=== PATIENT | female | born 1955 | race Caucasian/White ===

== ENCOUNTER 2017-05-05 09:34 | Observation (INO) ==
[2017-05-05] MEDS ORDERED: ASPIRIN 325 MG TABLET PO STA (09:49)
[2017-05-05] MEDS ORDERED: NITROGLYCERIN 2% OINT 1 INCH/GM PACK TOP STA (09:49)
[2017-05-05] MEDS ORDERED: ONDANSETRON 4 MG/2 ML VIAL IV STA (09:49)
[2017-05-05] MEDS ORDERED: NITROGLYCERIN SL 0.4 MG TABLET SL PRN (09:49)
[2017-05-05] MEDS ORDERED: ASPIRIN CHEW 81 MG TABLET PO ONE (09:53)
[2017-05-05] MEDS ORDERED: NITROGLYCERIN SL 0.4 MG TABLET SL ONE (09:54)
[2017-05-05 09:58] LABS: Basophils # 0.1 10*3/uL (0.0-0.2); Basophils % 0.8 % (0.0-0.8); Eosinophils # 0.1 10*3/uL (0.0-0.87); Eosinophils % 0.5 % (0.00-10.9); Hematocrit 42.3 VOL% (35.7-47.0); Hemoglobin 14.2 GM/DL (12.0-16.0); Immature Granulocytes % 0.4 %; Immature Granulocytes Absolute 0.04 #; Lymphocytes # 2.2 10*3/uL (1.4-4.0); Lymphocytes % 22.1 % (21.3-54.2); Mean Corpuscular HGB Conc 33.6 GM/DL (32-36); Mean Corpuscular Hemoglobin 28 PG (27-34); Mean Corpuscular Volume 83.6 FL (87-102); Mean Platelet Volume 11.5 FL (9.6-12.0); Monocytes % 9.5 % (1.7-12.7); Neutrophils # 6.7 10*3/uL (1.4-7.4); Neutrophils % 66.7 % (38.7-73.9); Platelet Count 194 T/CUMM (130-400); Red Blood Count 5.06 MC/CUMM (3.8-5.5); Red Cell Distribution Width 15.1 % (9.3-17.3)
[2017-05-05] MEDS ORDERED: ONDANSETRON 4 MG/2 ML VIAL ONE (09:58)
[2017-05-05 10:03] LABS: Partial Thromboplastin Time 37.7 SECS (0-40)
[2017-05-05 10:08] LABS: INR 2.4; PT Patient Result 26.4 SECS
[2017-05-05] MEDS ORDERED: ASPIRIN CHEW 81 MG TABLET PO STA (10:16)
--- NOTE | 2017-05-05 10:17 | XRay Report ---
Exam: XR chest 1V portable Indication: Midline chest pain Comparison study: Prior chest radiograph dated 03/28/2013 Findings: The heart, mediastinum and bony structures are stable from prior. There is no focal consolidation, pneumothorax or pleural effusion identified. Impression: No acute cardiopulmonary process. No significant change from prior. PROCEDURE INTERPRETED AT [facility] DEPARTMENT OF RADIOLOGY Final Report Signed by: Sheng Borrego
[2017-05-05 10:24] LABS: Albumin 4.2 G/DL (3.4-5.0); Bilirubin,Total 1.3 MG/DL (0.2-1.0); Calcium 9.2 MG/DL (8.5-10.1); Osmolality,Calculated 273.7 MOS/KG (273-304); Potassium 3.9 MMOL/L (3.5-5.1); Total Protein 8.3 G/DL (6.4-8.3)
[2017-05-05] MEDS ORDERED: DOCUSATE SODIUM 100 MG CAPSULE PO PRN (10:55)
[2017-05-05] MEDS ORDERED: ZALEPLON 5 MG CAPSULE PO PRN (10:55)
[2017-05-05] MEDS ORDERED: MAGNESIUM SULF RIDER 2 GM in PREMIX 1 EACH IV PRN ×2 (10:57→15:25)
[2017-05-05] MEDS ORDERED: MAGNESIUM SULF RIDER 4 GM in PREMIX 1 EACH IV PRN (10:57)
[2017-05-05] MEDS ORDERED: CARVEDILOL 3.125 MG TABLET PO STA (10:59)
[2017-05-05] MEDS ORDERED: LORazepam 1 MG TABLET PO STA (10:59)
--- NOTE | 2017-05-05 10:59 | Emergency Department Note ---
Ludivina Rodriguez Rolonda, am scribing for, and in the presence of, Jose Angel Jameson MD 10:09. Trino Rodriguez Phillip K, MD, personally performed the services described in this documentation, ascribed by Jillian Florence in my presence, and it is both accurate and complete . Arrival - Arrival Chief Complaint: Chest Pain ED Nursing Triage Note: states that she has had a big air bubble in the center of chest and radiates to her back, denies pain down her left arm, co constant nausea started this am with dizziness, belching. reports an " umbelievable headache" Mode of Arrival: Ambulatory Limitations: No Limitations Source: Patient, Old Records Reviewed, RN Notes Reviewed Time Seen by Provider: 05/05/17 09:59 - History of Present Illness HPI Narrative: Pt is a 61 y/o female who ambulated to the ED for further evaluation of mid chest pain pressure with an onset of x6 days ago. Pt has PMHx of GERD, HTN, and AFib, has a FHx of heart disease, and SHX of current every day smoker. Pt states that her pain starts in the front of the chest and radiates to the back. She states that she has been belching, feels as if there is an air bubble in her chest, and has a STOKES which feels "like the top of her head is about to blow off" which she thinks is a result of elevated BP. At time of triage pt's BP was 212/88. She denies taking ASA today, abdomen pain, and vomiting but confirms SOB , dizziness, and nausea. She also states that her left arm "feels heavy." No other complaint/pain in ED. Onset (ago): day(s) Consistency: constant Severity: moderate Severity scale (1-10): 5 Quality: other (pressure) Allergies/Adverse Reactions: Allergies Allergy/AdvReac Type Severity Reaction Status Date / Time codeine AdvReac Severe SHORTNESS Verified 05/05/17 09:53 OF BREATH iodine AdvReac Mild RASH Verified 05/05/17 09:49 Sulfa (Sulfonamide AdvReac Mild SHORTNESS Verified 05/05/17 09:53 Antibiotics) OF BREATH Home Medications: Home Medications Medication Instructions Recorded Confirmed Type Amiodarone Tab [Cordarone Tab] 200 mg PO DAILY 05/05/17 05/05/17 History Budesonide/Formoterol 80-4.5 2 puff INH BID PRN 05/05/17 05/05/17 History [Symbicort 80-4.5] Escitalopram [Lexapro] 20 mg PO QPM 05/05/17 05/05/17 History NIFEdipine [Nifedipine ER] 30 mg PO DAILY 05/05/17 05/05/17 History Warfarin Sodium 5 mg PO DAILY 05/05/17 05/05/17 History traMADol TAB [Ultram] 50 mg PO DAILY PRN 05/05/17 05/05/17 History Review of System - Review of System 12 point system: reviewed and no additional remarkable complaints except as stated - Review of System Constitutional: Absent: chills, fever Eyes: Absent: pain, redness Head/Ears/Nose/Throat: Absent: earache, epistaxis Respiratory: Present: respiratory distress (SOB) Cardiovascular: Present: chest pain Gastrointestinal: Present: nausea. Absent: abdominal pain, vomiting, diarrhea Genitourinary female: Absent: dysuria Musculoskeletal: Absent: arm pain, back pain, leg pain, neck pain Skin: Absent: rash, change in color Neurological: Present: headache, vertigo. Absent: weakness Psychiatric: Absent: anxiety Medical,Surgical,& Family Hx - Medical History Cardio: History of: Hypertension, Cardiovascular Problems (A fib) - Surgical History Abdominal Surgeries: Surgical HX of: Cholecystectomy Reproductive Surgeries: Surgical HX of;: Hysterectomy - Social History Smoking Status: Current every day smoker Frequency of Alcohol Use: None Type of Drug Use: None Exam Vital Signs: Vital Signs Temperature 98.4 F 05/05/17 09:39 Pulse Rate 94 H 05/05/17 09:39 Respiratory Rate 20 05/05/17 09:39 Blood Pressure 212/88 05/05/17 09:39 O2 Sat by Pulse Oximetry 98 05/05/17 09:39 - General General appearance: alert, in no apparent distress - Head Head exam: Present: atraumatic, normocephalic - Eye Eye exam: Present: PERRL, EOMI - ENT ENT exam: Present: mucous membranes moist. Absent: mucous membranes dry - Neck Neck exam: Present: full ROM. Absent: tenderness - Chest Chest inspection: Present: symmetric chest wall rise. Absent: tenderness - Respiratory Respiratory exam: Present: normal lung sounds bilaterally. Absent: wheezes - Cardiovascular Cardiovascular exam: Present: normal rhythm, tachycardia - Abdominal Exam Abdominal exam: Present: soft, normal bowel sounds. Absent: tenderness - Extremities Exam Extremities exam: Present: full ROM. Absent: tenderness - Back Exam Back exam: Present: full ROM. Absent: tenderness - Neurological Exam Neurological exam: Present: alert, oriented X3, CN II-XII intact - Psychiatric Psychiatric exam: Present: normal affect, normal mood - Skin Skin exam: Present: warm, dry, intact, normal color. Absent: rash Course Course Narrative: Patient discussed with Dr. Guadarrama. Results - Labs CBC & BMP: 05/05/17 09:40 05/05/17 09:40 Lab Results: I have reviewed the patients labs Labs: Laboratory Tests 05/05/17 05/05/17 09:40 09:40 WBC 10.0 RBC 5.06 Hgb 14.2 Hct 42.3 MCV 83.6 L Plt Count 194 [place] # (Auto) 1.0 H INR 2.4 PT Patient/Control Mix 26.4 Circ Anticoag PTT 37.7 Laboratory Tests 05/05/17 09:40 INR 2.4 PT Patient/Control Mix 26.4 Circ Anticoag PTT 37.7 Laboratory Tests 05/05/17 09:40 Sodium 138 Potassium 3.9 Chloride 106 Carbon Dioxide 25 BUN 12 Creatinine 1.20 H GFR Calculation 52 Total Bilirubin 1.30 H AST 45 H Alkaline Phosphatase 139 H Globulin 4.1 H Albumin/Globulin Ratio 1.0 L - EKG EKG results: interpreted by ERMD, sinus rhythm (Inferior and lateral ischemia) - Diagnostic Findings Procedure: Chest x-ray: report reviewed by me (No acute cardiopulmonary process. No significant change from prior.) Disposition Clinical Impression: Chest pain, Possible unstable angina, Hypertension Case discussed with: patient Disposition: Still a Patient Condition: Guarded Additional Instructions: Admit to Dr. Guadarrama
--- NOTE | 2017-05-05 11:00 | Cardiology History & Physical ---
Addendum entered and electronically signed by Nilam Ruvalcaba NP 05/05/17 15: 27: Patient has an allergy to IVP dye, specifically rash. She is being premedicated for heart catheterization. Original Note: <Nilam Ruvalcaba - Last Filed: 05/05/17 15:11> Assessment and Plan - Time spent with patient Time spent with patient: Greater than 30 minutes Time spent discussing smoking cessation with patient: 3 to 10 minutes (1) Tobacco abuse Status: Chronic Assessment and plan: SEE PLAN OF CARE LISTED BELOW Current Visit: Yes (2) Atrial fibrillation Status: Chronic Assessment and plan: SEE PLAN OF CARE LISTED BELOW Current Visit: Yes (3) High risk medication use Status: Chronic Assessment and plan: SEE PLAN OF CARE LISTED BELOW Current Visit: Yes (4) Chest pain Status: Acute Assessment and plan: SEE PLAN OF CARE LISTED BELOW Current Visit: Yes (5) Hypertension Status: Chronic Assessment and plan: SEE PLAN OF CARE LISTED BELOW Current Visit: Yes History of Present Illness Chief complaint: Chest pain History of present illness: Ms. Dunne, 61WF, has risk factors significant for: hypertension, tobaccoism, family history of coronary artery disease. History of atrial fibrillation for which she takes Sotalol for approximately 10 years. Takes Warfarin for stroke prevention. 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 Presented to the ED of [facility] this morning after experiencing intermittent chest pressure for approximately 1 week. Lasting various amounts of times usually 3-5 minutes. Described as " full like a bubble" beginning anteriorly in the center of her chest radiating posteriorly into her back. She can identify no aggravating factors nor any alleviating factors. She is currently chest pain-free. Rates the discomfort as a 5 on a scale of 1-10. Exercise does not re-create the discomfort. She has noted left arm heaviness on occasion often associated with the chest discomfort. Not associated with shortness of breath, diaphoresis. She has been told in the past by her primary care provider, she needed heart catheterization. Patient has a history of atrial fibrillation. She feels as if her arrhythmia is controlled on Sotalol as she has not had any palpitations in several years. INR 2.4. This morning, upon arrival, blood pressure was uncontrolled at 212/ 88. It has been elevated for approximately 1 week. Cardiac biomarkers negative , EKG unremarkable. Dr. Guadarrama has seen patient and recommended cardiac catheterization tomorrow. Will hold Coumadin, INR in the morning. Fasting lipid profile in the morning. Continue to cycle cardiac biomarkers, EKG and monitor telemetry. Echocardiogram, PPI, amylase, lipase. She is received Aspirin, beta sue. Because patient's INR is therapeutic, will not require require Lovenox. ASSESSMENT/PLAN: 1. CHEST PAIN - NPO after midnight for [facility] tomorrow. Should patient's cardiac biomarkers trend positive, will take this afternoon otherwise, scheduled for in the morning. Echo. PPI. Will add Simethicone. 2. HYPERTENSION -usually well controlled however over the past week has been suboptimally controlled. Coreg 6.25 mg has been initiated as well 3. UNKNOWN LIPID STATUS - FLP in the AM 4. TOBACCOISM - counseling prior to discharge 5. HISTORY OF ATRIAL FIBRILLATION - holding Coumadin tonight. Currently in NSR. Home Medications Medication Instructions Recorded Confirmed Type Budesonide/Formoterol 80-4.5 2 puff INH BID PRN 05/05/17 05/05/17 History [Symbicort 80-4.5] Escitalopram [Lexapro] 20 mg PO BEDTIME 05/05/17 05/05/17 History NIFEdipine [Nifedipine ER] 30 mg PO DAILY 05/05/17 05/05/17 History Warfarin Sodium 5 mg PO DAILY 05/05/17 05/05/17 History traMADol TAB [Ultram] 50 mg PO Q6H PRN 05/05/17 05/05/17 History Allergies Allergy/AdvReac Type Severity Reaction Status Date / Time Iodinated Contrast Media - Allergy Unknown RASH Verified 05/05/17 14:06 Oral and codeine AdvReac Severe Agitated Verified 05/05/17 14:06 Sulfa (Sulfonamide AdvReac Mild SHORTNESS Verified 05/05/17 09:53 Antibiotics) OF BREATH Review of systems: REVIEW OF SYSTEMS: - Constitutional Constitutional: Present: Fatigue. Absent: syncope, anorexia, night sweats - EENT Eyes: Absent: blurry vision, loss of vision, diplopia Ears: Absent: decreased hearing, ear pain, ear discharge - Cardiovascular Cardiovascular: Present: chest fullness at various times. No palpitations in several years, no real edema. - Respiratory Respiratory: Denies ORTIZ, cough. Absent: wheezing, hemoptysis, change in phlegm color - Gastrointestinal Gastrointestinal: Absent: Abdominal pain, hematemesis, hematochezia, melena, change in bowel habits, nausea - Genitourinary Genitourinary: Absent: difficulty urinating, dysuria, urinary hesitancy, flank pain - Musculoskeletal Musculoskeletal: Absent: joint swelling, muscle cramps, muscle weakness - Neurological Neurological: Present: normal gait without frequent falls. Absent: dizziness, hemiparesis - Psychiatric Psychiatric: Absent: anxiety, depression, difficulty concentrating - Endocrine Endocrine: Absent: cold intolerance, heat intolerance, polyuria, polyphagia, polydipsia - Hematologic/Lymphatic Hematologic/Lymphatic: Present: easy bruising. Absent: easy bleeding -Integumentary Integumentary: Absent: lesions, rashes, skin breakdown Medical,Surgical,& Family Hx - Medical History Cardio: History of: Cardiac Dysrhythmia (Atrial fibrillation), Hypertension, Cardiovascular Problems (A fib) No history of: CAD, NC - Surgical History Abdominal Surgeries: Surgical HX of: Cholecystectomy Reproductive Surgeries: Surgical HX of;: Hysterectomy - Social History Smoking Status: Current every day smoker Have you smoked in the last 12 months: Yes Time spent discussing smoking cessation with patient: 3 to 10 minutes Frequency of Alcohol Use: None Type of Drug Use: None Functional capacity: independent ambulation Cardiology Physical Exam - Constitutional Vitals: Vital Signs Temp Pulse Resp BP Pulse Ox 98.4 F 94 H 20 212/88 98 05/05/17 09:39 05/05/17 09:39 05/05/17 09:39 05/05/17 09:39 05/05/17 09:39 Intake and Output 05/04/17 05/05/17 05/05/17 23:59 07:59 15:59 Other: Weight 75.296 kg Patient Weight 05/05/17 23:59 Weight 75.296 kg Exam: General: [Appears well with no apparent distress.] [Pleasant and cooperative. ] [Appears comfortable.] HEENT: [PERRL, normocephalic, atraumatic. Mucous membranes moist. No jaundice noted. Conjunctiva moist and clear, sclerae anicteric] Neck: No JVD/HJR, no thyromegaly or lymphadenopathy noted. No carotid bruit appreciated Cardiac: [Regular rate and rhythm.] [No murmur rub or gallop.] Lungs: [Clear to auscultation without accessory muscle use to assist the respiratory pattern.] Not requiring oxygen Abdomen: Soft, bowel sounds normoactive. Nontender and nondistended. No abdominal bruit or thrill noted. No masses noted. Musculoskeletal: No fluid collection. Decreased range of motion is noted. Extremities: No clubbing, cyanosis noted. [ No edema noted.] Upper extremity pulses 2+. Lower extremity pulses 2+. Capillary refill less than 3 seconds. Skin: No unusual lesions or rashes. No skin breakdown appreciated. Neuro: Awake, alert and oriented 3. Moves all extremities well without hemiparesis or paralysis. No essential tremor is appreciated. Result/EKG - Labs CBC & BMP: 05/05/17 09:40 05/05/17 09:40 Lab Results: I have reviewed the past 24 hour labs Labs: Laboratory Results - last 24 hr 05/05/17 05/05/17 05/05/17 09:40 09:40 09:40 WBC RBC Hgb Hct MCV MCH MCHC RDW Plt Count MPV Neut % (Auto) Lymph % (Auto) Josephine % (Auto) Eos % (Auto) Baso % (Auto) Neut # (Auto) Lymph # (Auto) Josephine # (Auto) Eos # (Auto) Baso # (Auto) Immature Gran % Nucleated RBC % Immature Gran # Nucleated RBCs # INR 2.4 PT Patient/Control Mix 26.4 Circ Anticoag PTT 37.7 Sodium 138 Potassium 3.9 Chloride 106 Carbon Dioxide 25 Anion Gap 10.9 BUN 12 Creatinine 1.20 H GFR Calculation 52 BUN/Creatinine Ratio 10.00 Glucose 77 Calculated Osmolality 273.7 Calcium 9.2 Total Bilirubin 1.30 H AST 45 H ALT 53 Alkaline Phosphatase 139 H Troponin I B-Natriuretic Peptide 85 Total Protein 8.3 Albumin 4.2 Globulin 4.1 H Albumin/Globulin Ratio 1.0 L 05/05/17 05/05/17 09:40 09:40 WBC 10.0 RBC 5.06 Hgb 14.2 Hct 42.3 MCV 83.6 L MCH 28 MCHC 33.6 RDW 15.1 Plt Count 194 MPV 11.5 Neut % (Auto) 66.7 Lymph % (Auto) 22.1 Josephine % (Auto) 9.5 Eos % (Auto) 0.5 Baso % (Auto) 0.8 Neut # (Auto) 6.7 Lymph # (Auto) 2.2 Josephine # (Auto) 1.0 H Eos # (Auto) 0.1 Baso # (Auto) 0.1 Immature Gran % 0.4 Nucleated RBC % 0.0 Immature Gran # 0.04 Nucleated RBCs # 0.00 INR PT Patient/Control Mix Circ Anticoag PTT Sodium Potassium Chloride Carbon Dioxide Anion Gap BUN Creatinine GFR Calculation BUN/Creatinine Ratio Glucose Calculated Osmolality Calcium Total Bilirubin AST ALT Alkaline Phosphatase Troponin I 0.026 B-Natriuretic Peptide Total Protein Albumin Globulin Albumin/Globulin Ratio - Diagnostic Findings Procedure: Chest x-ray: report reviewed by me - EKG EKG results: interpreted by me EKG shows: sinus rhythm Quality Measures - Stroke Onset of Symptoms Date: 05/05/17 <Ruel Guadarrama - Last Filed: 05/05/17 15:57> History of Present Illness History of present illness: Ms. Dunne is a 61 year old female who presents with chest discomfort which I think is more suggestive of esophageal pain that it is actually angina. She does have extensive risk factors for premature heart disease and my plan is going to be to have her undergo cardiac catheterization in the morning. She is on Coumadin so we will hold that today and I think it would be reasonable to catheter tomorrow. I will have her placed on appropriate antianginals antithrombotics. I have discussed in detail the particulars of this case and I have examined the patient and reviewed the patient's chart both current and old. I was directly involved in the patient's evaluation and management and I completely agree with [Nilam Ruvalcaba NP] regarding this patient's evaluation and treatment plan. Cardiology Physical Exam - Constitutional Vitals: Vital Signs Temp Pulse Resp BP Pulse Ox 97.2 F L 61 18 147/73 93 L 05/05/17 13:21 05/05/17 13:21 05/05/17 13:21 05/05/17 13:21 05/05/17 13:21 Intake and Output 05/04/17 05/05/17 05/05/17 23:59 07:59 15:59 Other: Weight 75.296 kg Patient Weight 05/05/17 23:59 Weight 75.296 kg Result/EKG - Labs CBC & BMP: 05/05/17 09:40 05/05/17 09:40 Labs: Laboratory Results - last 24 hr 05/05/17 05/05/17 05/05/17 09:40 09:40 09:40 WBC RBC Hgb Hct MCV MCH MCHC RDW Plt Count MPV Neut % (Auto) Lymph % (Auto) Josephine % (Auto) Eos % (Auto) Baso % (Auto) Neut # (Auto) Lymph # (Auto) Josephine # (Auto) Eos # (Auto) Baso # (Auto) Immature Gran % Nucleated RBC % Immature Gran # Nucleated RBCs # INR 2.4 PT Patient/Control Mix 26.4 Circ Anticoag PTT 37.7 Sodium 138 Potassium 3.9 Chloride 106 Carbon Dioxide 25 Anion Gap 10.9 BUN 12 Creatinine 1.20 H GFR Calculation 52 BUN/Creatinine Ratio 10.00 Glucose 77 Calculated Osmolality 273.7 Calcium 9.2 Total Bilirubin 1.30 H AST 45 H ALT 53 Alkaline Phosphatase 139 H Total Creatine Kinase CK-MB (CK-2) Troponin I B-Natriuretic Peptide 85 Total Protein 8.3 Albumin 4.2 Globulin 4.1 H Albumin/Globulin Ratio 1.0 L Amylase Lipase TSH 3rd Generation 05/05/17 05/05/17 05/05/17 09:40 09:40 09:40 WBC 10.0 RBC 5.06 Hgb 14.2 Hct 42.3 MCV 83.6 L MCH 28 MCHC 33.6 RDW 15.1 Plt Count 194 MPV 11.5 Neut % (Auto) 66.7 Lymph % (Auto) 22.1 Josephine % (Auto) 9.5 Eos % (Auto) 0.5 Baso % (Auto) 0.8 Neut # (Auto) 6.7 Lymph # (Auto) 2.2 Josephine # (Auto) 1.0 H Eos # (Auto) 0.1 Baso # (Auto) 0.1 Immature Gran % 0.4 Nucleated RBC % 0.0 Immature Gran # 0.04 Nucleated RBCs # 0.00 INR PT Patient/Control Mix Circ Anticoag PTT Sodium Potassium Chloride Carbon Dioxide Anion Gap BUN Creatinine GFR Calculation BUN/Creatinine Ratio Glucose Calculated Osmolality Calcium Total Bilirubin AST ALT Alkaline Phosphatase Total Creatine Kinase CK-MB (CK-2) Troponin I 0.026 B-Natriuretic Peptide Total Protein Albumin Globulin Albumin/Globulin Ratio Amylase Lipase 134.0 TSH 3rd Generation 05/05/17 05/05/17 05/05/17 09:40 09:40 11:43 WBC RBC Hgb Hct MCV MCH MCHC RDW Plt Count MPV Neut % (Auto) Lymph % (Auto) Josephine % (Auto) Eos % (Auto) Baso % (Auto) Neut # (Auto) Lymph # (Auto) Josephine # (Auto) Eos # (Auto) Baso # (Auto) Immature Gran % Nucleated RBC % Immature Gran # Nucleated RBCs # INR PT Patient/Control Mix Circ Anticoag PTT Sodium Potassium Chloride Carbon Dioxide Anion Gap BUN Creatinine GFR Calculation BUN/Creatinine Ratio Glucose Calculated Osmolality Calcium Total Bilirubin AST ALT Alkaline Phosphatase Total Creatine Kinase 61 CK-MB (CK-2) < 1.0 Troponin I B-Natriuretic Peptide Total Protein Albumin Globulin Albumin/Globulin Ratio Amylase 68 Lipase 135.0 TSH 3rd Generation 2.640 05/05/17 13:56 WBC RBC Hgb Hct MCV MCH MCHC RDW Plt Count MPV Neut % (Auto) Lymph % (Auto) Josephine % (Auto) Eos % (Auto) Baso % (Auto) Neut # (Auto) Lymph # (Auto) Josephine # (Auto) Eos # (Auto) Baso # (Auto) Immature Gran % Nucleated RBC % Immature Gran # Nucleated RBCs # INR PT Patient/Control Mix Circ Anticoag PTT Sodium Potassium Chloride Carbon Dioxide Anion Gap BUN Creatinine GFR Calculation BUN/Creatinine Ratio Glucose Calculated Osmolality Calcium Total Bilirubin AST ALT Alkaline Phosphatase Total Creatine Kinase 51 CK-MB (CK-2) < 1.0 Troponin I 0.037 B-Natriuretic Peptide Total Protein Albumin Globulin Albumin/Globulin Ratio Amylase Lipase TSH 3rd Generation
[2017-05-05] MEDS ORDERED: METOPROLOL TARTRATE 50 MG TABLET PO STA (12:05)
[2017-05-05] MEDS ORDERED: METOPROLOL TARTRATE 50 MG TABLET ONE (12:34)
[2017-05-05] MEDS ORDERED: CARVEDILOL 3.125 MG TABLET ONE (12:34)
[2017-05-05] MEDS ORDERED: NITROGLYCERIN 2% OINT 1 INCH/GM PACK TOP ONE (12:39)
[2017-05-05] MEDS ORDERED: LORazepam 1 MG TABLET ONE (12:44)
--- NOTE | 2017-05-05 13:43 | EKG Report ---
Stationary ECG Study [facility] Test Date: 05/05/2017 1:43:11 PM Pat Name: GHISLAINE OBANDO Department: Room: 280 Gender: F Band Shover: SIMONE : 1955 Requested by: Jose Angel Avina Order Number: [id number] Reading MD: CRICKET IRBY Intervals [place] Rate: 59 P: 78 [place]: 157 QRS: 63 QRSD: 89 T: 64 QT: 461 QTc: 461 Interpretive Statements SINUS RHYTHM Electronically Signed On 05-05-17 17:23:36 CDT by CRICKET IRBY [email or web address]
[2017-05-05] MEDS ORDERED: PNEUMOCOCCAL VACCINE (23 VALENT) 0.5 ML VIAL IM ONE (13:58)
[2017-05-05 15:03] LABS: Troponin I Only 0.037 NG/ML (0.00-0.045)
[2017-05-05] MEDS ORDERED: BUDESONIDE/FORMOTEROL 80-4.5 INHALER 6.9 GM INH PRN (15:18)
[2017-05-05] MEDS: SODIUM CHLORIDE 0.45% 1,000 ML IV SCH (15:18)
[2017-05-05] MEDS: diphenhydrAMINE CAP 50 MG CAPSULE PO SCH ×2 (15:19→22:20)
[2017-05-05] MEDS: FAMOTIDINE 20 MG TABLET PO SCH ×2 (15:19→22:20)
[2017-05-05] MEDS: ACETAMINOPHEN 325 MG TABLET PO PRN ×2 (15:19→22:20)
[2017-05-05] MEDS: methylPREDNISolone SOD SUC 40 MG/1 ML VIAL IV SCH ×2 (15:20→17:25)
[2017-05-05] MEDS: PANTOPRAZOLE 40 MG TABLET PO SCH (15:20)
[2017-05-05] MEDS ORDERED: POTASSIUM CHLORIDE RIDER 10 MEQ in PREMIX 1 EACH IV PRN (15:25)
--- NOTE | 2017-05-05 16:15 | EKG Report ---
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
--- NOTE | 2017-05-05 17:02 | Event Note ---
Patient with chest pain of anginal quality. His risk factors for coronary disease. She is for cardiac catheterization possible percutaneous coronary mentioned. I discussed procedure in detail with her reviewing indications as well as how the procedure be carried out the risk. She does have a questionable IVP dye allergy and thus we will carry out prophylaxis for this. I discussed cardiac catheterization and percutaneous coronary intervention with the patient. I reviewed with her the indications for the procedure and the basis of how the procedure would be carried out. I also reviewed with her the risk of the procedure which include but not necessarily limited to access site bleeding, bruising, pain, swelling or vascular injury that may require emergency vascular surgery, blood transfusion, or thrombin injection. Also discussed the possibility of stroke, myocardial infarction, arrhythmia which may require electrocardioversion, and the possibility of dye reaction that would require medical therapy. Also discussed the possibility of coronary artery injury, ruptured, closure or perforation that may require emergency bypass surgery. We also discussed the possibility of from a major complication. She voices understanding and agrees to proceed.
[2017-05-05] MEDS ORDERED: HYDROmorphone 2 MG/1 ML VIAL IV PRN (17:11)
[2017-05-05 20:59] LABS: Troponin I Only < 0.015 NG/ML (0.00-0.045)
[2017-05-05] MEDS ORDERED: ESCITALOPRAM 10 MG TABLET PO SCH (21:00)
[2017-05-05] MEDS: METOPROLOL TARTRATE 25 MG TABLET PO SCH (22:20)
[2017-05-05] MEDS: traMADol 50 MG TABLET PO PRN (22:27)
[2017-05-05] MEDS: ONDANSETRON 4 MG/2 ML VIAL IV PRN (23:42)
[2017-05-06] MEDS: SODIUM CHLORIDE 0.45% 1,000 ML IV SCH ×4 (00:01→12:16)
[2017-05-06] MEDS: methylPREDNISolone SOD SUC 40 MG/1 ML VIAL IV SCH ×4 (00:36→14:31)
[2017-05-06] MEDS ORDERED: cloNIDine 0.1 MG TABLET PO PRN (04:47)
[2017-05-06 05:30] LABS: Basophils % 0.1 % (0.0-0.8); Hematocrit 42.3 VOL% (35.7-47.0); Hemoglobin 14.1 GM/DL (12.0-16.0); Immature Granulocytes % 0.4 %; Immature Granulocytes Absolute 0.03 #; Lymphocytes # 0.9 10*3/uL (1.4-4.0); Mean Corpuscular HGB Conc 33.3 GM/DL (32-36); Mean Corpuscular Hemoglobin 28 PG (27-34); Mean Corpuscular Volume 83.6 FL (87-102); Mean Platelet Volume 11.7 FL (9.6-12.0); Monocytes # 0.1 10*3/uL (0.11-0.8); Monocytes % 1.1 % (1.7-12.7); Neutrophils # 6.6 10*3/uL (1.4-7.4); Neutrophils % 86.4 % (38.7-73.9); Platelet Count 156 T/CUMM (130-400); Red Blood Count 5.06 MC/CUMM (3.8-5.5); Red Cell Distribution Width 14.8 % (9.3-17.3); White Blood Count 7.6 T/CUMM (4-12)
[2017-05-06 05:42] LABS: INR 2.4
[2017-05-06 05:54] LABS: Albumin 3.7 G/DL (3.4-5.0); Bilirubin,Total 1.1 MG/DL (0.2-1.0); Calcium 8.6 MG/DL (8.5-10.1); Osmolality,Calculated 274.7 MOS/KG (273-304); Potassium 4.3 MMOL/L (3.5-5.1); Risk Ratio 2.84; Total Protein 7.5 G/DL (6.4-8.3); VLDL CHOLESTEROL 13.8 MG/DL
[2017-05-06] MEDS ORDERED: DIAZEPAM 5 MG TABLET PO ONE (06:00)
[2017-05-06] MEDS ORDERED: diphenhydrAMINE CAP 25 MG CAPSULE PO ONE (06:00)
[2017-05-06 06:02] LABS: PT Patient Result 26.5 SECS
[2017-05-06] MEDS: ONDANSETRON 4 MG/2 ML VIAL IV PRN (06:47)
--- NOTE | 2017-05-06 06:59 | Event Note ---
Patient stated this morning she has some shortness of breath going to the bathroom. No chest pain. She is for cardiac catheterization possible percutaneous coronary mentioned later today. Again I discussed this procedure reviewing the indications have been carried out the risk with her. This was also discussed yesterday in great detail. Her questions were answered. We will proceed with procedure today.
--- NOTE | 2017-05-06 06:59 | History and Physical Update ---
Sedation H&P Update - History and Physical H&P was reviewed, the patient examined and there: are no changes in the patients condition since last H&P was completed. - Dictation Physical: refer to H&P completed by admitting physician - Physical Exam Heart: regular rate and rhythm Lung: clear to auscultation History and Physical Changes: None - Sedation Plan for Sedation: moderate Patient Consent: Procedure disscussed with patient and patinet has consented., Risks and benefits were discussed with patient,including infection,, bleeding, injury to surrounding structures, seizure, temporary nerve, Patient understands and accepts potential risks/benefits and agrees to, proceed. ASA Class: III Airway Assessment: Class III: Soft palate, base of uvula visible
[2017-05-06 07:13] LABS: Apearance,Urine CLEAR (Clear); Bilirubin,Urine Negative (Negative); Blood, Urine Moderate mg/dL (Negative); Glucose,Urine (UA) 150 mg/dL (Negative); Hyaline Casts,Urine 1 /LPF (0-3); Ketones,Urine Negative (Negative); Mucus,Urine Occasional /LPF (Occasional); Nitrite,Urine Negative (Negative); Protein,Urine 100 MG/DL; RBC,Urine 13 /HPF (0-4); Squamous Epithelial Cell,Urine Occasional /HPF (0-10); Urine Color Yellow (Yellow); Urine Specific Gravity 1.012 (1.001-1.035); Urine Urobilinogen < 2.0 EU/DL (0.2-1.0); WBC,Urine 1 /HPF (0-6)
--- NOTE | 2017-05-06 08:12 | EKG Report ---
Stationary ECG Study [facility] Test Date: 05/05/2017 9:39:18 AM Pat Name: GHISLAINE OBANDO Department: Room: 280 Gender: F Caddy: : 1955 Requested by: Jose Angel Avina Order Number: [id number] MD: LEVY HERRERA Intervals [place] Rate: 97 P: 80 [place]: 132 QRS: 66 QRSD: 90 T: 65 QT: 356 QTc: 410 Interpretive Statements SINUS RHYTHM Electronically Signed On 05-06-17 09:25:45 CDT by LEVY HERRERA [email or web address]
--- NOTE | 2017-05-06 09:11 | ECHO Report ---
Divya Dunne Exam Date: 05/05/2017 11:54 Referring Physician: Technologist: Aspen Esquivel RDCS Age: 61 Ht (in): 66 Wt (lb): 166 Gender: F Exam Location: [facility] Echo Indications: Chest pain, unspecified, Shortness of breath, Essential (primary) hypertension, Dizziness and giddiness, Nausea, Nicotine dependence, cigarettes, uncomplicated, Headache BP: 212 / 88 HR: 81 Rhythm: Sinus Technical Quality: Very technically difficult study IMPRESSIONS Normal left ventricular cavity size. Mild left ventricular hypertrophy. Left ventricular ejection fraction is estimated at 55 %. The right ventricle is normal in size and function. The right atrium is mildly enlarged. The left atrium is mildly enlarged. Morphologically normal mitral valve. Trace mitral valve regurgitation. Morphologically normal aortic valve without significant sclerosis or stenosis. There is no aortic regurgitation. Morphologically normal tricuspid valve. Trace tricuspid valve regurgitation. Morphologically normal pulmonic valve without significant stenosis. There is no pulmonic regurgitation. Normal pericardium without effusion. Normal ascending aorta dimension. MEASUREMENTS (Male / Female) Normal Values 2D ECHO LV Diastolic Diameter PLAX 4.4 cm 4.2 - 5.9 / 3.9 - 5.3 cm LV Systolic Diameter PLAX 3.5 cm LV Fractional Shortening PLAX 21.6 % IVS Diastolic Thickness 1.1 cm 0.6 - 1.0 / 0.6 - 0.9 cm LVPW Diastolic Thickness 1.1 cm 0.6 - 1.0 / 0.6 - 0.9 cm RV Internal Dim ED PLAX 3.4 cm Aortic Root Diameter 2.7 cm LA Systolic Diameter LX 2.8 cm 3.0 - 4.0 / 2.7 - 3.8 cm FINDINGS Left Ventricle Normal left ventricular cavity size. Mild left ventricular hypertrophy. Left ventricular ejection fraction is estimated at 55 %. Right Ventricle The right ventricle is normal in size and function. Right Atrium The right atrium is mildly enlarged. Left Atrium The left atrium is mildly enlarged. Mitral Valve Morphologically normal mitral valve. Trace mitral valve regurgitation. Aortic Valve Morphologically normal aortic valve without significant sclerosis or stenosis. There is no aortic regurgitation. Tricuspid Valve Morphologically normal tricuspid valve. Trace tricuspid valve regurgitation. Pulmonic Valve Morphologically normal pulmonic valve without significant stenosis. There is no pulmonic regurgitation. Pericardium Normal pericardium without effusion. Aorta Normal ascending aorta dimension. Ruel Guadarrama MD (Electronically Signed) Final Date: 06 May 2017 09:10
[2017-05-06] MEDS: FAMOTIDINE 20 MG TABLET PO SCH (09:21)
[2017-05-06] MEDS: PANTOPRAZOLE 40 MG TABLET PO SCH (09:21)
[2017-05-06] MEDS: METOPROLOL TARTRATE 25 MG TABLET PO SCH (09:21)
[2017-05-06] MEDS: traMADol 50 MG TABLET PO PRN (09:21)
[2017-05-06] MEDS: diphenhydrAMINE CAP 50 MG CAPSULE PO SCH (11:00)
[2017-05-06] MEDS ORDERED: NITROGLYCERIN DRIP 50 MG/250 ML BOTTLE IV ONE (12:16)
[2017-05-06] MEDS ORDERED: LIDOCAINE 1% 20 ML VIAL ONE (12:16)
[2017-05-06] MEDS ORDERED: VERAPAMIL 5 MG/2 ML VIAL ONE (12:16)
[2017-05-06] MEDS ORDERED: MIDAZOLAM 2 MG/2 ML VIAL ONE (12:38)
[2017-05-06] MEDS ORDERED: fentaNYL 100 MCG/2 ML VIAL ONE (12:38)
[2017-05-06] MEDS ORDERED: ENOXAPARIN 60 MG/0.6 ML SYRINGE ONE (12:44)
--- NOTE | 2017-05-06 13:07 | Operative Note ---
Date of procedure: 05/06/17 Procedure Preformed: Left heart catheterization with LV gram using right radial approach. Surgeon / Physician: Tal Cota Fun[employer] Car Driver: Jose F Sarmiento Post-op diagnosis: same Findings: The patient without any significant coronary artery disease or obstruction. Left ventricular ejection fraction is normal. Specimens: none sent Estimated blood loss: minimal Condition: stable Anesthesia: local, conscious sedation Disposition: floor
--- NOTE | 2017-05-06 14:13 | Cardiac Catheterization ---
Date of Procedure:: 05/06/17 Pre-op Diagnosis: Anginal quality chest pain with risk factors for coronary disease. Post-op diagnosis: same Procedure: LEFT HEART CATHETERIZATION History: 61-year-old female with risk factors for coronary disease with chest pain of anginal quality. Pre-Op diagnosis: Chest pain of anginal quality for evaluation coronary disease. Postoperative diagnosis: Procedures: 1. Left heart catheterization. 2. Left ventricular angiogram. 3. Selective left and right coronary angiograms. 4. Left internal mammary artery angiogram. Equipment: Terumo 6 [place] radial glide arterial sheath, Terumo 6 [place] radial TIG 4.0 diagnostic. Medium TR band. Medications: Preoperative Benadryl and Valium given by mouth. Lidocaine 1% local anesthesia mls administered by myself. Intraprocedure patient received Versed mgs IVP, fentanyl mcgs IVP, Verapamil 5 mg/NTG 200 mcg in 5 ml NS; Dilaudid mgs IVP. Complications: None immediate. Contrast: Omnipaque 75 milliliters. Description of procedure: After informed consent the patient was given preoperative medications and brought to the catheterization laboratory where their right groin and right anterior wrist and forearm was prepped and draped in usual fashion. IV sedation was then obtained after which local anesthesia with lidocaine was administered over the right radial artery. Using the double wall needle the radial artery was cannulated. Microguidewire was advanced through the cannula into the radial artery. We exchanged for the radial artery sheath that was advanced over the microguidewire. Guidewire was removed. The diagnostic 6 [place]i TIG 4.0 catheter was advanced and used to cross the aortic valve and left ventricular pressures were measured with LVEDP. Left ventricular angiogram was then obtained in the right oblique view. Pressures were again measured in the left ventricle with pullback pressures were then measured in the aortic root. This same catheter was then used to cannulate the left and then right coronary arteries of which angiograms were obtained of each of these vessels in multiple projections. The angiograms were then reviewed. The diagnostic catheter was then removed over the guidewire. The TR band was then placed in the usual fashion and hemostasis obtained. Hemodynamic data: LV 171/-4 , EDP 11 ; post angio LV 170/-4 , EDP 10 ; AO root 162/65 , mean 103 . Left ventricular angiogram: Left ventricle is normal size systolic function ejection fraction 55+%. There is no segmental wall motion normality's. No significant mitral valve regurgitation noted. Aortic valve appears to be a tricuspid structure. Thoracic aorta was unremarkable. Left main coronary artery angiogram: Left main coronary is short bifurcating the LAD and circumflex arteries. It is without stenosis. Left anterior descending artery angiogram: The LAD is a medium caliber vessel proximally and tapers are small vessel especially as it approaches and extends around the posterior apex. First and second diagonal branches are relatively small vessels. The LAD proper is widely patent as is its branches without stenosis or other disease. Circumflex artery angiogram: Circumflex arteries a medium caliber vessel giving rise to very small first obtuse marginal branch and a medium caliber second obtuse marginal branch is long cover larger myocardium. Third obtuse marginal branch is small medium caliber and widely patent. Distally circumflex terminates in the form of a fourth OM/posterior ventricular branch. There were some luminal irregularities in the circumflex artery but otherwise widely patent. Right coronary artery angiogram: The RCA is a small/medium caliber vessel that is dominant giving rise to a small medium caliber PDA and somewhat small posterior lateral branches. It also gives rise distally to the AV node artery. There is some luminal irregularities but no stenosis. Impression: 1. Left ventricle is normal size systolic function ejection fraction 55+%. 2. LVEDP is normal at 11 mmHg. 3. Aortic valve appears to be grossly a tricuspid structure without gradient. 4. Mitral valve is without significant regurgitation. 5. Right coronary artery at worst with luminal irregularities otherwise widely patent. 6. Left main coronary is short and widely patent. 7. The LAD and branches are patent without stenosis or disease. 8. Circumflex artery has it worse luminal irregularities otherwise widely patent. 9. Successful hemostasis of the right radial artery. Discussion: Patient be monitored post heart catheterization. She needs risk factor modification. Blood pressures need aggressive therapy. She needs to stop smoking. Implants: None. Anesthesia: local, moderate conscious sedation Surgeon / Physician: Tal Cota Early Morning: other (Lionel Sarmiento RN) Estimated blood loss: minimal Specimens: none sent Condition: stable Disposition: floor - Medications / Follow-up
--- NOTE | 2017-05-06 15:25 | Event Note ---
Patient doing well post catheterization. Her right radial artery catheterization site looks good and stable. She still groggy post procedure for her sedation. Her blood pressures have remained elevated some. We have increased her nifedipine. She has room for titration of her medications. This is typically followed by Dr. Rai Marion. I again reviewed with her and her family that her coronary arteries are stable and are not the cause of her symptoms. Her LV function was normal. Hopefully she can go home later today or tomorrow.
--- NOTE | 2017-05-06 16:28 | Discharge Summary ---
Hospital Course - Hospital Course Hospital Course: [facility] DIRECTOR: DR. MCGRATH PCP: DR. MARION Ms. Dunne, 61WF, has risk factors significant for: hypertension, tobaccoism, family history of coronary artery disease. History of atrial fibrillation for which she takes Sotalol for approximately 10 years. Takes Warfarin for stroke prevention. 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 Presented to the ED of [facility] May 05, 2017 after experiencing intermittent chest pressure for approximately 1 week. Her blood pressure was extremely high upon arrival and significant head-ache ensued. CIEs negative, EKG unremarkable. Given her multiple comorbidities, patient underwent elective cardiac catheterization May 06, 2017, performed by Dr. Cota, with the following impression noted: Impression: 1. Left ventricle is normal size systolic function ejection fraction 55+%. 2. LVEDP is normal at 11 mmHg. 3. Aortic valve appears to be grossly a tricuspid structure without gradient. 4. Mitral valve is without significant regurgitation. 5. Right coronary artery at worst with luminal irregularities otherwise widely patent. 6. Left main coronary is short and widely patent. 7. The LAD and branches are patent without stenosis or disease. 8. Circumflex artery has it worse luminal irregularities otherwise widely patent. 9. Successful hemostasis of the right radial artery. Echocardiogram revealed the following: EF 55%, no significant valvular abnormality. Patient has an IVP dye allergy (rash), therefore she was treated prophylactically to prevent reaction. LDL 127. Tolerated the procedure well without complication was returned to our telemetry unit in stable condition. Patient was counseled for greater than 5 minutes regarding the need for tobacco cessation. Patient is anxious for release home. Having felt she met maximal medical therapy, patient is being released in stable condition. Patient will resume all preadmission medications including: Warfarin 5 mg orally daily Tramadol 50 mg orally every 6 hours as needed Lexapro 20 mg orally each evening Symbicort 804 0.52 puffs inhalation twice daily as needed Nifedipine ER being increased from 30 mg daily to 60 mg daily. Metoprolol tartrate 25 mg orally twice daily (new) Discontinuing Clonidine altogether Protonix 40mg orally daily (new) Patient is not being discharged home on aspirin as she already takes Warfarin Patient already has an appointment with Dr. Mcgrath first week of May. She will keep this appointment. Patient will keep her existing appointment with Dr. Marion as well. Dr. Marion monitors INR and there is already a plan in place for monitoring. Patient is being given a referral back to Dr. Yuan for evaluation of noncardiac chest pain. Would like for her to be seen within the next few weeks. - Time spent with patient Time with patient DS: Less than 30 minutes Time spent discussing smoking cessation with patient: 3 to 10 minutes Diagnosis - Discharge Diagnosis (1) Tobacco abuse Status: Chronic (2) Atrial fibrillation Status: Chronic (3) High risk medication use Status: Chronic (4) Chest pain Status: Resolved (5) Hypertension Status: Chronic Specialty Discharge - Follow Up or Referrals Follow up with: Ramy Mcgrath MD [Physician] - (Keep appointment in May) Rai Marion DO [Primary Care Provider] - (Keep current appointment with Dr. Marion. Continue INR schedule for monitoring) Yassine Yuan MD [Physician] - (RE: non-cardiac chest pain. Appointment 2-3 weeks) Discharge Plan - Discharge Data Disposition: Disch To Home/Self Care Condition at Discharge: Stable Discharge Diet: advance to your usual diet Activity: other (Post cath expectations) Hygiene: other (Post cath expectations) Weight Bearing at Discharge: other (Post cath expectations) Driving: other (Post cath expectations) Contact your physician if you experience:: fever over 101, Difficulty voiding, Redness or swelling, Nausea/Vomiting, Shortness of breath, Bleeding, pain uncontrolled by pain medications - Discharge Medications New NIFEdipine XL TAB [Procardia Xl] 60 mg PO DAILY #30 tablet Metoprolol Tartrate Tab [Lopressor Tab] 25 mg PO BID #60 tablet Pantoprazole Tab [Protonix Tab] 40 mg PO DAILY #30 tablet Continue Budesonide/Formoterol 80-4.5 [Symbicort 80-4.5] 2 puff INH BID PRN PRN Reason: Shortness Of Breath Escitalopram [Lexapro] 20 mg PO BEDTIME Warfarin Sodium 5 mg PO DAILY traMADol TAB [Ultram] 50 mg PO Q6H PRN PRN Reason: Headache Discontinued NIFEdipine [Nifedipine ER] 30 mg PO DAILY - Follow Up or Referral - Forms/Instructions Instructions: Coronary Artery Disease (GEN), Left Heart Catheterization (DC), Heart Healthy Diet (GEN), Cigarette Smoking and Your Health (GEN), How to Stop Smoking, Critical Care Nurse Practitioner (GEN) Additional Discharge Instructions: Please give patient written prescription to return to work Monday, May 08, 2017. Exam - Constitutional Vitals: Period Temp Pulse Resp BP Sys/Munson Pulse Ox Last 24 Hr 96.5 F-98.8 F 59-82 16-20 151-207/69-90 90-96 Exam: General: [Appears well with no apparent distress.] [Pleasant and cooperative. ] [Appears comfortable.] HEENT: [PERRL, normocephalic, atraumatic. Mucous membranes moist. No jaundice noted. Conjunctiva moist and clear, sclerae anicteric] Neck: No JVD/HJR, no thyromegaly or lymphadenopathy noted. No carotid bruit appreciated Cardiac: [Regular rate and rhythm.] [No murmur rub or gallop.] Lungs: [Clear to auscultation without accessory muscle use to assist the respiratory pattern.] Not requiring oxygen Abdomen: Soft, bowel sounds normoactive. Nontender and nondistended. No abdominal bruit or thrill noted. No masses noted. Musculoskeletal: No fluid collection. Decreased range of motion is noted. Extremities: Right radial approach reveals no hematoma. No clubbing, cyanosis noted. [ No edema noted.] Upper extremity pulses 2+. Lower extremity pulses 2+ . Capillary refill less than 3 seconds. Skin: No unusual lesions or rashes. No skin breakdown appreciated. Neuro: Awake, alert and oriented 3. Moves all extremities well without hemiparesis or paralysis. No essential tremor is appreciated. Discharge Results Procedures and tests throughout hospitalization: Pending Orders 05/06/17 12:27 CL heart Routine 05/07/17 04:00 Comp Blood Count Auto Diff IN AM Comprehensive Metabolic Panel IN AM Labs on day of discharge: Labs from last 24 hours 05/06/17 05/06/17 05/06/17 06:58 04:33 04:33 WBC RBC Hgb Hct MCV MCH MCHC RDW Plt Count MPV Neut % (Auto) Lymph % (Auto) [place] % (Auto) Eos % (Auto) Baso % (Auto) Neut # (Auto) Lymph # (Auto) [place] # (Auto) Eos # (Auto) Baso # (Auto) Immature Gran % Nucleated RBC % Immature Gran # Nucleated RBCs # INR 2.4 PT Patient/Control Mix 26.5 Sodium 138 Potassium 4.3 Chloride 105 Carbon Dioxide 26 Anion Gap 11.3 BUN 11 Creatinine 0.70 GFR Calculation 101 BUN/Creatinine Ratio 15.00 Glucose 119 H Calculated Osmolality 274.7 Calcium 8.6 Total Bilirubin 1.10 H AST 37 ALT 50 Alkaline Phosphatase 129 H Total Creatine Kinase CK-MB (CK-2) Troponin I Total Protein 7.5 Albumin 3.7 Globulin 3.8 H Albumin/Globulin Ratio 0.9 L Triglycerides 69 Cholesterol 236 H LDL Cholesterol 127.0 VLDL Cholesterol 13.8 HDL Cholesterol 83 H Heart Disease Risk Ratio 2.84 Urine Color Yellow Urine Appearance Clear Urine pH 6.0 Ur Specific [place] 1.012 Urine Protein 100 Urine Glucose (UA) 150 Urine Ketones Negative Urine Blood Moderate Urine Nitrate Negative Urine Bilirubin Negative Urine Urobilinogen < 2.0 H Urine Leukocytes Negative Urine RBC 13 Urine WBC 1 Ur Squamous Epith Cells Occasional Hyaline Casts 1 Urine Mucus Occasional Ur Culture Indicated? Not indicated 05/06/17 05/05/17 04:33 20:00 WBC 7.6 RBC 5.06 Hgb 14.1 Hct 42.3 MCV 83.6 L MCH 28 MCHC 33.3 RDW 14.8 Plt Count 156 MPV 11.7 Neut % (Auto) 86.4 H Lymph % (Auto) 12.0 L [place] % (Auto) 1.1 L Eos % (Auto) 0.0 Baso % (Auto) 0.1 Neut # (Auto) 6.6 Lymph # (Auto) 0.9 L [place] # (Auto) 0.1 L Eos # (Auto) 0.0 Baso # (Auto) 0.0 Immature Gran % 0.4 Nucleated RBC % 0.0 Immature Gran # 0.03 Nucleated RBCs # 0.00 INR PT Patient/Control Mix Sodium Potassium Chloride Carbon Dioxide Anion Gap BUN Creatinine GFR Calculation BUN/Creatinine Ratio Glucose Calculated Osmolality Calcium Total Bilirubin AST ALT Alkaline Phosphatase Total Creatine Kinase 60 CK-MB (CK-2) < 1.0 Troponin I < 0.015 Total Protein Albumin Globulin Albumin/Globulin Ratio Triglycerides Cholesterol LDL Cholesterol VLDL Cholesterol HDL Cholesterol Heart Disease Risk Ratio Urine Color Urine Appearance Urine pH Ur Specific [place] Urine Protein Urine Glucose (UA) Urine Ketones Urine Blood Urine Nitrate Urine Bilirubin Urine Urobilinogen Urine Leukocytes Urine RBC Urine WBC Ur Squamous Epith Cells Hyaline Casts Urine Mucus Ur Culture Indicated? 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
[2017-05-06 18:26] VITALS: BP 171/91
== END 2017-05-06 18:48 | disposition home or self-care (01) ==
LOC: N.ED 09:34 → N.EDINP 09:34 → N.TELEN 13:27
PROVIDERS: ADMIT Internal Medicine Interventional Cardiology; ATTEND Internal Medicine Interventional Cardiology
PROC: CLCCHCL (ICD-10-PCS; 2017-05-06 13:15)

== ENCOUNTER 2022-10-28 12:02 | Inpatient (IN) ==
[2022-10-28] MEDS ORDERED: PANTOPRAZOLE 40 MG VIAL IV STA (12:33)
[2022-10-28] MEDS ORDERED: ONDANSETRON 4 MG/2 ML VIAL IV STA (12:33)
[2022-10-28] MEDS ORDERED: ACETAMINOPHEN 325 MG TABLET PO PRN (12:34)
[2022-10-28 12:39] LABS: Basophils % 0.1 % (0.0-0.8); Hematocrit 26.8 VOL% (35.7-47.0); Immature Granulocytes Absolute 0.24 #; Lymphocytes % 16.6 % (21.3-54.2); Mean Corpuscular HGB Conc 29.9 GM/DL (32-36); Mean Corpuscular Volume 79.5 FL (87-102); Mean Platelet Volume 11.2 FL (9.6-12.0); Monocytes # 1.9 10*3/uL (0.11-0.8); Monocytes % 7.8 % (1.7-12.7); NRBC # 0.08 10*3/uL; Neutrophils % 74.5 % (38.7-73.9); Platelet Count 252 T/CUMM (130-400); Red Blood Count 3.37 MC/CUMM (3.8-5.5); Red Cell Distribution Width 16.9 % (9.3-17.3); White Blood Count 24.3 T/CUMM (4-12)
[2022-10-28] MEDS ORDERED: SODIUM CHLORIDE 0.9% 1,000 ML IV PRN ×2 (12:40→21:08)
[2022-10-28 12:49] LABS: INR 1.3; PT Patient Result 14.4 SECS (10.1-12.1); Partial Thromboplastin Time 27.1 SECS (23.7-32.9)
[2022-10-28 13:01] LABS: Albumin 3.2 G/DL (3.4-5.0); Bilirubin,Total 1.2 MG/DL (0.20-1.00); Calcium 8.7 MG/DL (8.5-10.1); Osmolality,Calculated 281.8 MOS/KG (273-304); Potassium 3.5 MMOL/L (3.5-5.1); Total Protein 6.3 G/DL (6.4-8.2)
[2022-10-28 13:50] LABS: Lymphocytes 18 % (20-55); Nucleated Red Blood Cells 1 /100 WBC (0-5); Total Cells Counted 100
[2022-10-28 13:51] LABS: Hypochromia Slight; Ovalocytes Slight; Polychromasia Few
[2022-10-28] MEDS: SODIUM CHLORIDE 0.9% 1,000 ML IV SCH ×2 (14:17→23:06)
[2022-10-28] MEDS ORDERED: hydrALAZINE 20 MG/1 ML VIAL IV PRN (16:12)
[2022-10-28] MEDS ORDERED: hydrALAZINE 20 MG/1 ML VIAL ONE (16:15)
[2022-10-28] MEDS ORDERED: DILTIAZEM 50 MG/10 ML VIAL IV ONE ×2 (16:40→16:46)
[2022-10-28] MEDS: DILTIAZEM INJ 100 MG in SODIUM CHLORIDE 0.9% 100 ML IV SCH (16:49)
[2022-10-28] MEDS ORDERED: DILTIAZEM 25 MG/5 ML VIAL IV STA (17:25)
[2022-10-28] MEDS ORDERED: DILTIAZEM 50 MG/10 ML VIAL IV STA (17:43)
[2022-10-28] MEDS ORDERED: DIGOXIN 0.5 MG/2 ML AMP IV ONE (18:14)
[2022-10-28] MEDS: LEVALBUTEROL 0.63 MG/3 ML NEB RESP TX PRN (20:35)
[2022-10-28 20:41] LABS: Basophils % 0.1 % (0.0-0.8); Eosinophils % 0.1 % (0.00-10.9); Hematocrit 24.8 VOL% (35.7-47.0); Hemoglobin 7.4 GM/DL (12.0-16.0); Immature Granulocytes Absolute 0.24 #; Lymphocytes # 4.6 10*3/uL (1.4-4.0); Lymphocytes % 19.5 % (21.3-54.2); Mean Corpuscular HGB Conc 29.8 GM/DL (32-36); Mean Corpuscular Volume 78.2 FL (87-102); Mean Platelet Volume 11.6 FL (9.6-12.0); Monocytes # 2.3 10*3/uL (0.11-0.8); Monocytes % 9.9 % (1.7-12.7); NRBC # 0.11 10*3/uL; Neutrophils % 69.4 % (38.7-73.9); Platelet Count 294 T/CUMM (130-400); Red Blood Count 3.17 MC/CUMM (3.8-5.5); Red Cell Distribution Width 17.2 % (9.3-17.3); White Blood Count 23.5 T/CUMM (4-12)
[2022-10-28 21:15] LABS: Lymphocytes 15 % (20-55); Microcytosis 1+; Ovalocytes Few; Platelet Estimate Increased; Polychromasia Few
[2022-10-28 21:16] LABS: Hypochromia Slight; Total Cells Counted 100
[2022-10-29] MEDS: SODIUM CHLORIDE 0.9% 1,000 ML IV SCH ×2 (04:45→17:01)
[2022-10-29] MEDS: LEVALBUTEROL 0.63 MG/3 ML NEB RESP TX PRN (05:00)
[2022-10-29 05:02] LABS: Basophils % 0.1 % (0.0-0.8); Eosinophils % 0.2 % (0.00-10.9); Hematocrit 25.9 VOL% (35.7-47.0); Hemoglobin 8.1 GM/DL (12.0-16.0); Immature Granulocytes % 0.6 %; Immature Granulocytes Absolute 0.08 #; Lymphocytes # 2.7 10*3/uL (1.4-4.0); Lymphocytes % 21.6 % (21.3-54.2); Mean Corpuscular HGB Conc 31.3 GM/DL (32-36); Mean Corpuscular Volume 79.4 FL (87-102); Monocytes # 1.2 10*3/uL (0.11-0.8); Monocytes % 9.5 % (1.7-12.7); NRBC # 0.02 10*3/uL; Platelet Count 121 T/CUMM (130-400); Red Blood Count 3.26 MC/CUMM (3.8-5.5); Red Cell Distribution Width 16.1 % (9.3-17.3); White Blood Count 12.5 T/CUMM (4-12)
[2022-10-29] MEDS: ONDANSETRON 4 MG/2 ML VIAL IV PRN (08:10)
[2022-10-29] MEDS ORDERED: FUROSEMIDE 20 MG TABLET PO PRN (08:21)
[2022-10-29] MEDS ORDERED: ALBUTEROL/IPRATROPIUM 3 ML NEB RESP TX PRN (08:21)
[2022-10-29] MEDS ORDERED: LACTULOSE 20 GM/30 ML UDCUP PO PRN (08:21)
[2022-10-29] MEDS ORDERED: ALBUTEROL 2.5 MG/3 ML NEB RESP TX PRN (08:29)
[2022-10-29] MEDS: ARFORMOTEROL 15 MCG/2 ML NEB RESP TX SCH ×2 (09:15→19:24)
[2022-10-29] MEDS: CHOLECALCIFEROL 1,000 UNIT TABLET PO SCH ×2 (09:19→22:38)
[2022-10-29] MEDS: ASCORBIC ACID 500 MG TABLET PO SCH (09:19)
[2022-10-29] MEDS: PANTOPRAZOLE 40 MG VIAL IV SCH (09:20)
[2022-10-29] MEDS: cloNIDine 0.1 MG TABLET PO SCH (09:20)
[2022-10-29] MEDS: MULTIVITAMIN (CENTRUM) TABLET PO SCH ×2 (09:20→22:38)
[2022-10-29] MEDS: DRONEDARONE 400 MG TABLET PO SCH (17:01)
[2022-10-29] MEDS: PROPRANOLOL 10 MG TABLET PO SCH ×2 (17:01→22:38)
[2022-10-29 17:33] LABS: Hematocrit 28.8 VOL% (35.7-47.0)
[2022-10-29] MEDS: DILTIAZEM INJ 100 MG in SODIUM CHLORIDE 0.9% 100 ML IV SCH (18:01)
[2022-10-30] MEDS: SODIUM CHLORIDE 0.9% 1,000 ML IV SCH ×3 (03:09→13:01)
[2022-10-30] MEDS: ONDANSETRON 4 MG/2 ML VIAL IV PRN (05:30)
[2022-10-30] MEDS ORDERED: LIDOCAINE 2% 5 ML VIAL ONE (07:32)
[2022-10-30] MEDS ORDERED: propofoL 200 MG/20 ML VIAL IV ONE (07:32)
[2022-10-30] MEDS ORDERED: ALBUTEROL INHALER 18 GM INH ONE (07:42)
[2022-10-30] MEDS ORDERED: ONDANSETRON 4 MG/2 ML VIAL IV ONE (08:36)
[2022-10-30] MEDS: HYDROmorphone 1 MG/1 ML SYRINGE IV PRN (09:12)
[2022-10-30 09:45] LABS: Basophils % 0.1 % (0.0-0.8); Eosinophils # 0.3 10*3/uL (0.0-0.87); Eosinophils % 2.1 % (0.00-10.9); Hematocrit 30.6 VOL% (35.7-47.0); Hemoglobin 9.6 GM/DL (12.0-16.0); Immature Granulocytes % 0.6 %; Lymphocytes # 2.8 10*3/uL (1.4-4.0); Lymphocytes % 18.2 % (21.3-54.2); Mean Corpuscular HGB Conc 31.4 GM/DL (32-36); Mean Corpuscular Volume 78.7 FL (87-102); Monocytes # 1.5 10*3/uL (0.11-0.8); Monocytes % 9.7 % (1.7-12.7); Neutrophils % 69.3 % (38.7-73.9); Platelet Count 177 T/CUMM (130-400); Red Blood Count 3.89 MC/CUMM (3.8-5.5); Red Cell Distribution Width 16.5 % (9.3-17.3); White Blood Count 15.5 T/CUMM (4-12)
[2022-10-30] MEDS: ARFORMOTEROL 15 MCG/2 ML NEB RESP TX SCH ×3 (12:00→19:03)
[2022-10-30] MEDS: cloNIDine 0.1 MG TABLET PO SCH ×2 (12:04→12:40)
[2022-10-30] MEDS: DRONEDARONE 400 MG TABLET PO SCH ×3 (12:04→16:52)
[2022-10-30] MEDS: ASCORBIC ACID 500 MG TABLET PO SCH (12:05)
[2022-10-30] MEDS: CHOLECALCIFEROL 1,000 UNIT TABLET PO SCH ×2 (12:05→20:31)
[2022-10-30] MEDS: MULTIVITAMIN (CENTRUM) TABLET PO SCH ×2 (12:05→20:31)
[2022-10-30] MEDS: PROPRANOLOL 10 MG TABLET PO SCH ×4 (12:05→20:30)
[2022-10-30] MEDS: PANTOPRAZOLE 40 MG VIAL IV SCH (13:36)
[2022-10-30] MEDS: DILTIAZEM INJ 100 MG in SODIUM CHLORIDE 0.9% 100 ML IV SCH (16:36)
[2022-10-31] MEDS: SODIUM CHLORIDE 0.9% 1,000 ML IV SCH (00:12)
[2022-10-31] MEDS ORDERED: FUROSEMIDE 40 MG/4 ML VIAL IV ONE (05:45)
[2022-10-31 06:11] LABS: Basophils % 0.1 % (0.0-0.8); Eosinophils # 0.2 10*3/uL (0.0-0.87); Hematocrit 26.5 VOL% (35.7-47.0); Hemoglobin 8.1 GM/DL (12.0-16.0); Immature Granulocytes % 0.5 %; Immature Granulocytes Absolute 0.06 #; Lymphocytes # 1.8 10*3/uL (1.4-4.0); Lymphocytes % 16.7 % (21.3-54.2); Mean Corpuscular HGB Conc 30.6 GM/DL (32-36); Mean Corpuscular Volume 79.3 FL (87-102); Mean Platelet Volume 10.4 FL (9.6-12.0); Neutrophils % 71.7 % (38.7-73.9); Platelet Count 125 T/CUMM (130-400); Red Blood Count 3.34 MC/CUMM (3.8-5.5); Red Cell Distribution Width 16.5 % (9.3-17.3)
[2022-10-31 06:42] LABS: Platelet Estimate Adequate
[2022-10-31 06:43] LABS: Anisocytosis 1+
[2022-10-31] MEDS: ARFORMOTEROL 15 MCG/2 ML NEB RESP TX SCH ×2 (07:54→19:27)
[2022-10-31] MEDS: PANTOPRAZOLE 40 MG VIAL IV SCH (09:55)
[2022-10-31] MEDS: DRONEDARONE 400 MG TABLET PO SCH ×2 (11:05→16:11)
[2022-10-31] MEDS: PROPRANOLOL 10 MG TABLET PO SCH ×3 (11:05→20:15)
[2022-10-31] MEDS: ASCORBIC ACID 500 MG TABLET PO SCH (11:06)
[2022-10-31] MEDS: CHOLECALCIFEROL 1,000 UNIT TABLET PO SCH ×2 (11:06→20:15)
[2022-10-31] MEDS: MULTIVITAMIN (CENTRUM) TABLET PO SCH ×2 (11:06→20:14)
[2022-10-31] MEDS: cloNIDine 0.1 MG TABLET PO SCH (11:07)
[2022-10-31] MEDS: HYDROmorphone 1 MG/1 ML SYRINGE IV PRN ×2 (11:46→20:16)
[2022-10-31] MEDS: SPIRONOLACTONE 100 MG TABLET PO SCH (12:16)
[2022-10-31] MEDS: DILTIAZEM INJ 100 MG in SODIUM CHLORIDE 0.9% 100 ML IV SCH (16:50)
[2022-10-31] MEDS: LACTULOSE 20 GM/30 ML UDCUP PO SCH (20:15)
[2022-11-01 06:06] LABS: Basophils % 0.1 % (0.0-0.8); Eosinophils # 0.1 10*3/uL (0.0-0.87); Eosinophils % 1.4 % (0.00-10.9); Hematocrit 25.6 VOL% (35.7-47.0); Immature Granulocytes % 0.5 %; Immature Granulocytes Absolute 0.05 #; Lymphocytes # 1.6 10*3/uL (1.4-4.0); Lymphocytes % 16.4 % (21.3-54.2); Mean Corpuscular HGB Conc 30.9 GM/DL (32-36); Mean Corpuscular Volume 80.3 FL (87-102); Mean Platelet Volume 11.5 FL (9.6-12.0); Monocytes # 1.1 10*3/uL (0.11-0.8); Monocytes % 11.1 % (1.7-12.7); Neutrophils % 70.5 % (38.7-73.9); Red Blood Count 3.19 MC/CUMM (3.8-5.5); Red Cell Distribution Width 16.5 % (9.3-17.3)
[2022-11-01 06:07] LABS: Hemoglobin 7.9 GM/DL (12.0-16.0); Platelet Count 102 T/CUMM (130-400)
[2022-11-01 06:20] LABS: Albumin 2.3 G/DL (3.4-5.0); Bilirubin,Total 2.1 MG/DL (0.20-1.00); Calcium 7.7 MG/DL (8.5-10.1); Osmolality,Calculated 278.4 MOS/KG (273-304); Potassium 3.1 MMOL/L (3.5-5.1); Total Protein 4.9 G/DL (6.4-8.2)
[2022-11-01] MEDS: ARFORMOTEROL 15 MCG/2 ML NEB RESP TX SCH ×2 (08:10→19:28)
[2022-11-01] MEDS: SPIRONOLACTONE 100 MG TABLET PO SCH (09:26)
[2022-11-01] MEDS: DRONEDARONE 400 MG TABLET PO SCH ×2 (09:27→16:20)
[2022-11-01] MEDS: FUROSEMIDE 20 MG TABLET PO SCH (09:27)
[2022-11-01] MEDS: PROPRANOLOL 10 MG TABLET PO SCH ×3 (09:31→22:36)
[2022-11-01] MEDS: LACTULOSE 20 GM/30 ML UDCUP PO SCH ×2 (09:31→20:24)
[2022-11-01] MEDS: PANTOPRAZOLE 40 MG VIAL IV SCH (09:56)
[2022-11-01] MEDS: HYDROmorphone 1 MG/1 ML SYRINGE IV PRN ×2 (10:02→20:51)
[2022-11-01] MEDS: MULTIVITAMIN (CENTRUM) TABLET PO SCH ×2 (11:08→22:36)
[2022-11-01] MEDS: ASCORBIC ACID 500 MG TABLET PO SCH (11:08)
[2022-11-01] MEDS: CHOLECALCIFEROL 1,000 UNIT TABLET PO SCH ×2 (11:08→22:37)
[2022-11-01] MEDS: cloNIDine 0.1 MG TABLET PO SCH (11:08)
[2022-11-01] MEDS ORDERED: SODIUM CHLORIDE 0.9% 1,000 ML IV PRN ×2 (11:58→11:59)
[2022-11-01] MEDS: POTASSIUM BICARB EFFERVESCENT 20 MEQ TAB.EFF PO SCH ×2 (14:38→20:24)
[2022-11-01] MEDS: DILTIAZEM INJ 100 MG in SODIUM CHLORIDE 0.9% 100 ML IV SCH (17:06)
[2022-11-02 01:12] LABS: Basophils % 0.1 % (0.0-0.8); Eosinophils # 0.2 10*3/uL (0.0-0.87); Eosinophils % 1.5 % (0.00-10.9); Hematocrit 27.5 VOL% (35.7-47.0); Hemoglobin 8.8 GM/DL (12.0-16.0); Immature Granulocytes % 0.4 %; Immature Granulocytes Absolute 0.04 #; Lymphocytes # 2.1 10*3/uL (1.4-4.0); Mean Corpuscular Volume 78.3 FL (87-102); Mean Platelet Volume 11.8 FL (9.6-12.0); Monocytes # 1.3 10*3/uL (0.11-0.8); Monocytes % 12.3 % (1.7-12.7); Neutrophils % 65.7 % (38.7-73.9); Platelet Count 100 T/CUMM (130-400); Red Blood Count 3.51 MC/CUMM (3.8-5.5); Red Cell Distribution Width 17.2 % (9.3-17.3); White Blood Count 10.7 T/CUMM (4-12)
[2022-11-02 01:20] LABS: INR 1.1; PT Patient Result 11.7 SECS (10.1-12.1)
[2022-11-02 01:30] LABS: Albumin 2.5 G/DL (3.4-5.0); Bilirubin,Direct 0.51 MG/DL (0.0-0.20); Bilirubin,Total 2.5 MG/DL (0.20-1.00); Calcium 7.9 MG/DL (8.5-10.1); Osmolality,Calculated 276.5 MOS/KG (273-304); Total Protein 5.3 G/DL (6.4-8.2)
[2022-11-02] MEDS: ARFORMOTEROL 15 MCG/2 ML NEB RESP TX SCH ×2 (07:27→19:01)
[2022-11-02] MEDS: LACTULOSE 20 GM/30 ML UDCUP PO SCH ×2 (09:47→21:22)
[2022-11-02] MEDS: SPIRONOLACTONE 100 MG TABLET PO SCH (09:47)
[2022-11-02] MEDS: FUROSEMIDE 20 MG TABLET PO SCH (09:47)
[2022-11-02] MEDS: PROPRANOLOL 10 MG TABLET PO SCH ×3 (09:47→21:22)
[2022-11-02] MEDS: DRONEDARONE 400 MG TABLET PO SCH ×2 (09:47→17:48)
[2022-11-02] MEDS: HYDROmorphone 1 MG/1 ML SYRINGE IV PRN ×2 (09:49→18:33)
[2022-11-02] MEDS: PANTOPRAZOLE 40 MG VIAL IV SCH (09:49)
[2022-11-02] MEDS: CHOLECALCIFEROL 1,000 UNIT TABLET PO SCH ×2 (10:42→21:27)
[2022-11-02] MEDS: ASCORBIC ACID 500 MG TABLET PO SCH (10:42)
[2022-11-02] MEDS: POTASSIUM BICARB EFFERVESCENT 20 MEQ TAB.EFF PO SCH ×2 (10:42→21:22)
[2022-11-02] MEDS: MULTIVITAMIN (CENTRUM) TABLET PO SCH ×2 (10:42→21:26)
[2022-11-02] MEDS: cloNIDine 0.1 MG TABLET PO SCH (10:42)
[2022-11-02] MEDS: DILTIAZEM INJ 100 MG in SODIUM CHLORIDE 0.9% 100 ML IV SCH (15:46)
[2022-11-03] MEDS: HYDROmorphone 1 MG/1 ML SYRINGE IV PRN ×3 (03:53→17:38)
[2022-11-03 06:03] LABS: Basophils % 0.1 % (0.0-0.8); Eosinophils # 0.2 10*3/uL (0.0-0.87); Eosinophils % 1.7 % (0.00-10.9); Hematocrit 32.1 VOL% (35.7-47.0); Hemoglobin 9.8 GM/DL (12.0-16.0); Immature Granulocytes % 0.6 %; Immature Granulocytes Absolute 0.06 #; Lymphocytes # 1.5 10*3/uL (1.4-4.0); Lymphocytes % 13.5 % (21.3-54.2); Mean Corpuscular HGB Conc 30.5 GM/DL (32-36); Mean Corpuscular Volume 80.5 FL (87-102); Mean Platelet Volume 10.2 FL (9.6-12.0); Monocytes # 1.2 10*3/uL (0.11-0.8); Monocytes % 10.8 % (1.7-12.7); Neutrophils % 73.3 % (38.7-73.9); Platelet Count 117 T/CUMM (130-400); Red Blood Count 3.99 MC/CUMM (3.8-5.5); Red Cell Distribution Width 17.1 % (9.3-17.3); White Blood Count 10.9 T/CUMM (4-12)
[2022-11-03 06:23] LABS: Albumin 2.6 G/DL (3.4-5.0); Bilirubin,Direct 0.43 MG/DL (0.0-0.20); Bilirubin,Indirect 1.7 MG/DL (0.0-1.0); Bilirubin,Total 2.1 MG/DL (0.20-1.00); Calcium 8.5 MG/DL (8.5-10.1); Osmolality,Calculated 273.7 MOS/KG (273-304); Potassium 3.4 MMOL/L (3.5-5.1); Total Protein 5.8 G/DL (6.4-8.2)
[2022-11-03] MEDS: ARFORMOTEROL 15 MCG/2 ML NEB RESP TX SCH ×2 (06:51→20:14)
[2022-11-03] MEDS: FUROSEMIDE 20 MG TABLET PO SCH (11:07)
[2022-11-03] MEDS: PROPRANOLOL 10 MG TABLET PO SCH ×3 (11:08→20:43)
[2022-11-03] MEDS: LACTULOSE 20 GM/30 ML UDCUP PO SCH ×2 (11:08→20:42)
[2022-11-03] MEDS: SPIRONOLACTONE 100 MG TABLET PO SCH (11:08)
[2022-11-03] MEDS: PANTOPRAZOLE 40 MG VIAL IV SCH (11:09)
[2022-11-03] MEDS: POTASSIUM BICARB EFFERVESCENT 20 MEQ TAB.EFF PO SCH ×2 (11:09→20:44)
[2022-11-03] MEDS: DRONEDARONE 400 MG TABLET PO SCH ×2 (11:13→17:27)
[2022-11-03] MEDS: ASCORBIC ACID 500 MG TABLET PO SCH (12:15)
[2022-11-03] MEDS: CHOLECALCIFEROL 1,000 UNIT TABLET PO SCH ×2 (12:15→20:43)
[2022-11-03] MEDS: cloNIDine 0.1 MG TABLET PO SCH (12:15)
[2022-11-03] MEDS: MULTIVITAMIN (CENTRUM) TABLET PO SCH ×2 (12:15→20:42)
[2022-11-03] MEDS: DILTIAZEM INJ 100 MG in SODIUM CHLORIDE 0.9% 100 ML IV SCH (17:39)
[2022-11-04 03:49] LABS: Basophils % 0.4 % (0.0-0.8); Eosinophils # 0.2 10*3/uL (0.0-0.87); Eosinophils % 1.5 % (0.00-10.9); Hemoglobin 8.8 GM/DL (12.0-16.0); Immature Granulocytes % 0.3 %; Immature Granulocytes Absolute 0.03 #; Lymphocytes % 18.4 % (21.3-54.2); Mean Corpuscular HGB Conc 30.3 GM/DL (32-36); Mean Platelet Volume 11.3 FL (9.6-12.0); Monocytes # 1.2 10*3/uL (0.11-0.8); Monocytes % 11.2 % (1.7-12.7); Neutrophils % 68.2 % (38.7-73.9); Platelet Count 114 T/CUMM (130-400); Red Blood Count 3.58 MC/CUMM (3.8-5.5); Red Cell Distribution Width 16.9 % (9.3-17.3); White Blood Count 10.8 T/CUMM (4-12)
[2022-11-04 04:12] LABS: Albumin 2.3 G/DL (3.4-5.0); Bilirubin,Total 2.4 MG/DL (0.20-1.00); Calcium 7.9 MG/DL (8.5-10.1); Potassium 3.8 MMOL/L (3.5-5.1); Total Protein 5.4 G/DL (6.4-8.2)
[2022-11-04] MEDS: ONDANSETRON 4 MG/2 ML VIAL IV PRN ×2 (04:15→10:38)
[2022-11-04] MEDS: ARFORMOTEROL 15 MCG/2 ML NEB RESP TX SCH (06:45)
[2022-11-04] MEDS: POTASSIUM BICARB EFFERVESCENT 20 MEQ TAB.EFF PO SCH (09:12)
[2022-11-04] MEDS: PROPRANOLOL 10 MG TABLET PO SCH (09:13)
[2022-11-04] MEDS: FUROSEMIDE 20 MG TABLET PO SCH (09:13)
[2022-11-04] MEDS: SPIRONOLACTONE 100 MG TABLET PO SCH (09:13)
[2022-11-04] MEDS: PANTOPRAZOLE 40 MG VIAL IV SCH (09:14)
[2022-11-04] MEDS: DRONEDARONE 400 MG TABLET PO SCH (09:15)
[2022-11-04 09:22] VITALS: BP 147/71
[2022-11-04] MEDS: ASCORBIC ACID 500 MG TABLET PO SCH (09:30)
[2022-11-04] MEDS: CHOLECALCIFEROL 1,000 UNIT TABLET PO SCH (09:30)
[2022-11-04] MEDS: MULTIVITAMIN (CENTRUM) TABLET PO SCH (09:30)
[2022-11-04] MEDS: cloNIDine 0.1 MG TABLET PO SCH (09:30)
[2022-11-04] MEDS: LACTULOSE 20 GM/30 ML UDCUP PO SCH (09:34)
== END 2022-11-04 13:15 | disposition home health service (06) | DRG 369 ==
LOC: N.ED 12:02 → N.EDINP 12:34 → N.TELEN 10-29 21:50
PROVIDERS: ADMIT Family Medicine; ATTEND Family Medicine
PROC: EGDWEBL (ICD-10-PCS; 2022-10-30 07:20)